=== PATIENT | female | born 1970 | race Caucasian/White ===

== ENCOUNTER 2017-05-12 11:32 | Emergency (ER) | payer BC, OTHER ==
[~2017-05-12] VITALS: Ht 170.2 cm; Wt 75.0 kg
[2017-05-12 11:45] VITALS: BP 138/91; PULSE 72; RESP 18; TEMP 98.4
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
[2017-05-12] MEDS ORDERED: ONDANSETRON ODT 4 MG TAB PO ONE (14:45)
[2017-05-12] MEDS ORDERED: MECLIZINE HCL 25 MG TAB PO ONE (15:30)
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
[2017-05-12] MEDS ORDERED: ZOFR4TAB3 SL (18:26)
[2017-05-12] MEDS ORDERED: IBUP-232 PO (18:26)
== END 2017-05-12 18:55 | disposition home or self-care (01) ==
LOC: NEPD 11:32
DX: S80.12XA Contusion of left lower leg, initial encounter (principal); S80.11XA Contusion of right lower leg, initial encounter; S60.212A Contusion of left wrist, initial encounter; S09.90XA Unspecified injury of head, initial encounter; V49.40XA Driver injured in collision with unspecified motor vehicles in traffic accident, initial encounter; R11.2 Nausea with vomiting, unspecified
CPT/HCPCS: 70450; 72040; 73110; 99284